=== PATIENT | male | born 1970 | race American Indian/Alaskan Native ===

== ENCOUNTER 2022-04-26 22:24 | Inpatient (IN) | payer SELFPAY ==
--- NOTE | 2022-04-26 23:08 | Emergency Department Report ---
ED General Adult HPI - General Chief complaint: Dyspnea/Respdistress Stated complaint: STV PUI?: No Time Seen by Provider: 04/26/22 22:56 Source: patient, EMS Mode of arrival: Stretcher Limitations: No Limitations - History of Present Illness Initial comments: 51-year-old male with medical history of hypertension also medically noncompliant said that he is not taking his blood pressure medication, denies smoking history or cocaine or illicit drug use. Patient came in today with concerns of heart racing and also short of breath that started while he was driving from work. Patient said that he has had this in the past but this the first night lasted this long. At the time of EMS arrival patient's heart was in the 220 was attempted vagal maneuver with no changes. The EMS gave patient 6 mg adenosine at 2201 and also adenosine 12 mg at 2203 and patient did convert with 12 mg of adenosine. At the time of evaluation. Patient endorsed feeling palpitation with short of breath. Patient denies any other symptoms such as fever chill night sweat dizziness blurred vision lightheadedness headache tinnitus ear pain runny nose sore throat loss of taste or smell chest pain cough abdominal pain nausea vomiting diarrhea constipation joint pain muscle pain new rash and heat or cold intolerance. - Related Data Allergies Allergy/AdvReac Type Severity Reaction Status Date / Time No Known Allergies Allergy Unverified 04/26/22 22:27 ED Review of Systems ROS: Stated complaint: STV Other details as noted in HPI Comment: All other systems reviewed and negative Constitutional: no symptoms reported Eyes: as per HPI ENT: as per HPI Respiratory: no symptoms reported Cardiovascular: palpitations Endocrine: no symptoms reported Gastrointestinal: as per HPI Genitourinary: as per HPI Musculoskeletal: as per HPI Skin: as per HPI Neurological: as per HPI Psychiatric: as per HPI Hematological/Lymphatic: as per HPI ED Past Medical Hx - Past Medical History Previous Medical History?: No Hx Hypertension: Yes (NON-COMPLIANT) - Surgical History Past Surgical History?: No - Social History Smoking Status: Unknown if ever smoked ED Physical Exam - General Limitations: No Limitations General appearance: alert, in no apparent distress - Head Head exam: Present: atraumatic, normocephalic - Eye Eye exam: Present: normal appearance, PERRL, EOMI Pupils: Present: normal accommodation - ENT ENT exam: Present: normal exam, mucous membranes moist - Neck Neck exam: Present: normal inspection, full ROM - Respiratory Respiratory exam: Present: normal lung sounds bilaterally - Cardiovascular Cardiovascular Exam: Present: normal rhythm, tachycardia, normal heart sounds - GI/Abdominal GI/Abdominal exam: Present: soft - Extremities Exam Extremities exam: Present: normal inspection, full ROM, normal capillary refill - Back Exam Back exam: Present: normal inspection, full ROM - Neurological Exam Neurological exam: Present: alert, oriented X3, CN II-XII intact - Psychiatric Psychiatric exam: Present: normal affect, normal mood - Skin Skin exam: Present: normal color ED Course Vital Signs 04/26/22 04/26/22 04/26/22 22:27 23:20 23:25 Temperature 98.6 F Pulse Rate 109 H 104 H Respiratory 18 21 23 Rate Blood Pressure 194/96 Blood Pressure [Right] O2 Sat by Pulse 100 100 100 Oximetry 04/26/22 04/26/22 04/26/22 23:27 23:31 23:46 Temperature Pulse Rate 101 H 103 H 102 H Respiratory 16 14 16 Rate Blood Pressure 194/96 Blood Pressure 194/96 [Right] O2 Sat by Pulse 100 100 100 Oximetry 04/27/22 04/27/22 04/27/22 00:00 00:16 00:30 Temperature Pulse Rate 95 H 91 H 95 H Respiratory 16 28 H 21 Rate Blood Pressure 194/96 172/94 165/102 Blood Pressure [Right] O2 Sat by Pulse 100 100 98 Oximetry 04/27/22 04/27/22 00:46 01:00 Temperature Pulse Rate 92 H 87 Respiratory 24 28 H Rate Blood Pressure 185/95 184/103 Blood Pressure [Right] O2 Sat by Pulse 100 97 Oximetry - Reevaluation(s) Reevaluation #1: 04/27/22 00:27 PATIENT'S LAB CAME BACK WITH ELEVATED TROP (NO CHEST PAIN) AND ELEVATED BNP (NO HX OF CHF OR IL). IN SETTING OF RECENT SVT AND ALL THESE ELEVATED, THERE IS CERTAINLY CONCERN FOR POSSIBLE SUBMASSIVE PE; THEREFORE, I WILL ORDER CTPA IMMEDIATELY AND WHILE WAITING FOR CTPA, I WILL GIVE PATIENT ASA, LOVENOX. I WILL KEEP AN EYE ON THE PATIENT CLOSELY. 04/27/22 02:[address] evidence for pulmonary embolism. Borderline cardiomegaly with mild interstitial pulm edema. Incidental pulmonary nodule in the right upper lobe measuring 15 mm with solid characteristic. Recommend further evaluation with PET CT scan. I will talk to hospitalist regarding this patient. 0 04/27/22 03:36 HOSPITALIST ACCEPTED THE PATIENT. ED Medical Decision Making - Lab Data Result diagrams: 04/26/22 23:06 04/26/22 23:06 Critical care attestation.: If time is entered above; I have spent that time in minutes in the direct care of this critically ill patient, excluding procedure time. ED Disposition Clinical Impression: SVT (supraventricular tachycardia), Tetrahydrocannabinol (THC) dependence, New onset of congestive heart failure, NSTEMI (non-ST elevated myocardial infarction), Pulmonary nodule Disposition: ADMITTED INPATIENT Is pt being admited?: Yes Does the pt Need Aspirin: No Condition: Stable Referrals: CHASTITY RAMOS MD [Primary Care Provider] - 3-5 Days Time of Disposition: 02:10
[2022-04-26 23:22] LABS: Basophils % (Auto) 0.4 % (0.0-1.8); Eosinophils # (Auto) 0.1 K/mm3 (0.0-0.4); Eosinophils % (Auto) 1.7 % (0.0-4.3); Hematocrit 48.9 % (35.5-45.6); Hemoglobin 16.1 gm/dl (11.8-15.2); Lymphocytes # (Auto) 1.7 K/mm3 (1.2-5.4); Lymphocytes % (Auto) 33.1 % (13.4-35.0); Mean Corpuscular HGB Conc 33 % (32-34); Mean Corpuscular Volume 92 fl (84-94); Monocytes # (Auto) 0.3 K/mm3 (0.0-0.8); Monocytes % (Auto) 5.8 % (0.0-7.3); Platelet Count 209 K/mm3 (140-440); Red Blood Count 5.33 M/mm3 (3.65-5.03); Red Cell Distribution Width 15.7 % (13.2-15.2)
--- NOTE | 2022-04-26 23:23 | XRay Report ---
CHEST 1 VIEW INDICATION / CLINICAL INFORMATION: SOB. COMPARISON: None available. FINDINGS: SUPPORT DEVICES: None. HEART / MEDIASTINUM: Cardiac silhouette is borderline to mildly enlarged. LUNGS / PLEURA: There is minimal interstitial pulmonary edema present. No pleural effusion or focal a reas consolidation. No pneumothorax. ADDITIONAL FINDINGS: No significant additional findings. IMPRESSION: 1. Borderline cardiomegaly with minimal interstitial pulmonary edema. Signer Name: Ana Nur MD Signed: 04/26/2022 11:19 PM Workstation Name: [id number]
[2022-04-27 00:05] LABS: Alanine Aminotransferase 41 units/L (7-56); Albumin 4.4 g/dL (3.9-5); BUN/Creatinine Ratio 11; Blood Urea Nitrogen 13 mg/dL (9-20); Calcium 8.7 mg/dL (8.4-10.2); Hemolysis Index 13
[2022-04-27 00:13] LABS: Creatine Kinase MB 11.4 ng/mL (0.0-4.0)
[2022-04-27] MEDS ORDERED: ASPIRIN 81 MG TAB CHEW PO ONE (00:26)
[2022-04-27] MEDS ORDERED: ENOXAPARIN 100 MG/1 ML INJ SUB-Q ONE (00:26)
[2022-04-27 00:44] LABS: Chol/HDL Ratio 2.31 %
[2022-04-27 01:21] LABS: Color,Urine Colorless (Yellow)
[2022-04-27 01:23] LABS: Bacteria,Urine 1+ /HPF (Negative); Granular Casts,Urine 6 /LPF; Mucus,Urine FEW /HPF
[2022-04-27 01:24] LABS: Amphetamine Screen,Urine Negative; Benzodiazepines Screen,Urine Negative; Cocaine Screen,Urine Negative; Methadone Screen,Urine Negative; Opiate Screen,Urine Negative
[2022-04-27 01:41] LABS: Cannabinoid Screen,Urine Positive
--- NOTE | 2022-04-27 01:48 | Cat Scan Report ---
CTA CHEST WITH IV CONTRAST INDICATION / CLINICAL INFORMATION: SVT + TROP + BNP; R/O PE. TECHNIQUE: Axial CT images were obtained through the chest after injection of 100 cc Omni 350 IV contrast. 3 luis armando ne MIP and/or 3D reconstructions were produced. All CT scans at this location are performed using CT dose reduction for ALARA by means of automated exposure control. COMPARISON: Chest radiograph from earlier today FINDINGS: PULMONARY ARTERIES: No pulmonary emboli. THORACIC AORTA: No significant abnormality. HEART: Borderline cardiomegaly. CORONARY ARTERIES: No significant calcification. PLEURA: No pleural effusion. No pneumothorax. LYMPH NODES: No significant adenopathy. LUNGS: Mild interstitial pulmonary edema is noted bilaterally. No focal consolidation or pleural effu britni noted. Also noted incidentally is a noncalcified mass in the right upper lobe laterally. Pulmona ry mass measures 1.5 cm and has irregular margins. ADDITIONAL FINDINGS: None. UPPER ABDOMEN: No acute findings. SKELETAL STRUCTURES: No significant osseous abnormality. IMPRESSION: 1. No CT evidence for pulmonary embolism. 2. Borderline cardiomegaly with mild interstitial pulmonary edema. 3.. Incidental pulmonary nodule(s) in the right upper lobe measuring 15 mm with solid characteristics . Recommend further evaluation with PET/CT. Finding is concerning for lung malignancy. Signer Name: Ana Nur MD Signed: 04/27/2022 1:44 AM Workstation Name: [id number]
[2022-04-27] MEDS ORDERED: ONDANSETRON 4 MG/2 ML INJ IV PRN (03:35)
[2022-04-27] MEDS ORDERED: MAGNESIUM HYDROXIDE (MOM) ORAL LIQD UDC PO PRN (03:35)
[2022-04-27] MEDS ORDERED: ACETAMINOPHEN 325 MG TAB PO PRN ×2 (03:35)
[2022-04-27] MEDS ORDERED: traMADol 50 MG TAB PO PRN (03:35)
[2022-04-27] MEDS ORDERED: MORPHINE 4 MG/1 ML INJ IV PRN (03:35)
[2022-04-27] MEDS ORDERED: MORPHINE 2 MG/1 ML INJ IV PRN ×2 (03:35)
[2022-04-27] MEDS ORDERED: DEXTROSE 50% IN WATER (25GM) 50 ML SYRINGE IV PRN (03:35)
--- NOTE | 2022-04-27 03:57 | History and Physical Report ---
History of Present Illness Date of examination: 04/27/22 Date of admission: 04/27/2022 Chief complaint: Palpitation History of present illness: 51-year-old -[place] male with known history of hypertension who was not been quite compliant with his medications for several years presenting the emergency room today complaining of palpitations and shortness of breath while driving to work today. He has had similar episodes before but this has Lasted longer than in the past. He denies any chest pain. Upon arrival of EMS patient's heart rate was in the 200s and Valsalva maneuver was tried without any significant improvement. Patient was subsequently given adenosine 6 mg and subsequently 12 mg and patient converted to sinus rhythm. Patient admits that he has not been compliant with his blood pressure medication secondary to lack of insurance. He denies any headache or dizziness, denies any diaphoresis, no nausea vomiting and no abdominal pain. Upon arrival in the emergency room today blood pressure was quite elevated with systolic in the 190s and diastolic in the 90s. Work-up in the emergency room today, chest x-ray reveals borderline cardiomegaly with minimal interstitial pulmonary edema. CT angiogram reveals incidental pulmonary nodule in the right upper lobe measuring 15 mm with solid characteristics. PET/CT scan is recommended for furt her evaluation. Lab reveals a BNP of 1094, troponin 0.051, D-dimer 299, UDS significant for marijuana. EKG shows no ischemic changes. Patient is being admitted with pulmonary edema NSTEMI and history of SVT. Past History Past Medical History: hypertension Past Surgical History: No surgical history Social history: no significant social history Family history: no significant family history Medications and Allergies Allergies Allergy/AdvReac Type Severity Reaction Status Date / Time No Known Allergies Allergy Unverified 04/26/22 22:27 Review of Systems Constitutional: no fever, no chills Ears, nose, mouth and throat: no nasal congestion, no sore throat Cardiovascular: palpitations, no chest pain Respiratory: no cough, no shortness of breath Gastrointestinal: no abdominal pain, no nausea, no vomiting, no diarrhea Genitourinary Male: no dysuria, no hematuria, no flank pain Musculoskeletal: no neck pain, no low back pain Integumentary: no rash, no pruritis Neurological: no headaches, no confusion Psychiatric: no anxiety, no depression Endocrine: no polyphagia, no polydipsia, no polyuria, no nocturia Exam - Constitutional Vitals: Temp Pulse Resp BP Pulse Ox 98.6 F 87 28 H 184/103 97 04/26/22 22:27 04/27/22 01:00 04/27/22 01:00 04/27/22 01:00 04/27/22 01:00 General appearance: Present: no acute distress, well-nourished - EENT Eyes: Present: PERRL, EOM intact. Absent: scleral icterus ENT: hearing intact, clear oral mucosa, dentition normal - Neck Neck: Present: supple, normal ROM - Respiratory Respiratory effort: normal Respiratory: bilateral: CTA - Cardiovascular Rhythm: regular Heart Sounds: Present: S1 & S2. Absent: gallop, systolic murmur, diastolic murmur, rub, click - Extremities Extremities: no ischemia, pulses intact, pulses symmetrical, No edema, normal temperature, normal color, Full ROM Peripheral Pulses: within normal limits - Abdominal General gastrointestinal: Present: soft, non-tender, non-distended, normal bowel sounds. Absent: mass - Integumentary Integumentary: Present: clear, warm, dry, normal turgor. Absent: rash - Musculoskeletal Musculoskeletal: strength equal bilaterally - Psychiatric Psychiatric: appropriate mood/affect, intact judgment & insight, memory intact, cooperative - Neurologic Neurologic: CNII-XII intact, no focal deficits, moves all extremities HEART Score - HEART Score Troponin: Troponin T 0.051 ng/mL (0.00-0.029) H 04/26/22 23:06 Results - Labs CBC & Chem 7: 04/26/22 23:06 04/26/22 23:06 Labs: Abnormal lab results 04/26/22 04/26/22 04/26/22 Range/Units 23:06 23:06 23:06 RBC 5.33 H (3.65-5.03) M/mm3 Hgb 16.1 H (11.8-15.2) gm/dl Hct 48.9 H (35.5-45.6) % RDW 15.7 H (13.2-15.2) % D-Dimer 299.97 H (0-234) ng/mlDDU Glucose 154 H (75-100) mg/dL Total Creatine Kinase (55-170) units/L CK-MB (CK-2) (0.0-4.0) ng/mL Troponin T (0.00-0.029) ng/mL NT-Pro-B Natriuret Pep (0-900) pg/mL Triglycerides (2-149) mg/dL HDL Cholesterol (40-59) mg/dL 04/26/22 Range/Units 23:06 RBC (3.65-5.03) M/mm3 Hgb (11.8-15.2) gm/dl Hct (35.5-45.6) % RDW (13.2-15.2) % D-Dimer (0-234) ng/mlDDU Glucose (75-100) mg/dL Total Creatine Kinase 636 H (55-170) units/L CK-MB (CK-2) 11.4 H (0.0-4.0) ng/mL Troponin T 0.051 H (0.00-0.029) ng/mL NT-Pro-B Natriuret Pep 1094 H (0-900) pg/mL Triglycerides 176 H (2-149) mg/dL HDL Cholesterol 76 H (40-59) mg/dL Assessment and Plan Assessment: 1. CHFnew onset 2. Hypertensive urgency 3. NSTEMI 4. Pulmonary nodule 5. Medication noncompliance Plan: 1. Patient admitted and placed on telemetry. 2. Patient started on diuretics. We will monitor input and output and also monitor daily weight. 3. Patient scheduled for echocardiogram. 4. We will cardiology evaluation and recommendations 5. Patient will be placed on prn antihypertensive medication. We will monitor vital signs closely. DVT prophylaxis:SQ heparin Code Status: Full Code
[2022-04-27] MEDS ORDERED: FUROSEMIDE 40 MG/4 ML INJ IV SCH (06:00)
[2022-04-27] MEDS: HEPARIN 5,000 UNIT/1 ML VIAL SUB-Q SCH ×3 (06:59→22:04)
[2022-04-27] MEDS ORDERED: hydrALAZINE 20 MG/1 ML INJ IV PRN (07:00)
--- NOTE | 2022-04-27 09:10 | Event Note ---
Date: 04/27/22 Patient seen in the echocardiogram lab. This is a follow-up from an admission earlier this morning. We will continue to plan as outlined in H&P. With regards to the pulmonary nodule, patient states that he would like to have a second opinion at [place]. Pulmonary consultation pending. Await cardiology consultation. Total visit time equals 32 minutes with greater than 50% spent on coordination of care and counseling
[2022-04-27] MEDS: dilTIAZem CD 180 MG CAP PO SCH (11:45)
[2022-04-27] MEDS ORDERED: LOSARTAN 50 MG TAB PO SCH (12:00)
--- NOTE | 2022-04-27 12:19 | Consultation ---
History of Present Illness Consult date: 04/27/22 Requesting physician: ROOPA BARRETT Consult reason: congestive heart failure History of present illness: Patient 51-year-old male with a past medical history of hypertension came to the ED for complaint of palpitations and shortness of breath that occurred while driving yesterday. Per documentation on arrival to the ED patient was in SVT with heart rate 200s and converted following administration of adenosine. Patient was also found to have elevated BNP and elevated blood pressure. Patient admits to being noncompliant with blood pressure medication. Of note CT concerning for pulmonary nodule. At time of interview patient denies any complaints of chest pain, current palpitations, shortness of breath, or lightheadedness. Cardiology was consulted for CHF. Past History Past Medical History: hypertension Past Surgical History: No surgical history Social history: no significant social history Family history: no significant family history Medications and Allergies Allergies Allergy/AdvReac Type Severity Reaction Status Date / Time No Known Allergies Allergy Verified 04/27/22 12:18 Active Meds: Active Medications Acetaminophen (Acetaminophen 325 Mg Tab) 650 mg PO Q4H PRN PRN Reason: Pain MILD(1-3)/Fever >100.5/BOWSER Aspirin (Aspirin Ec 325 Mg Tab) 325 mg PO QDAY [facility] Dextrose (Dextrose 50% In Water (25gm) 50 Ml Syringe) 0 ml IV Q30MIN PRN; Protocol PRN Reason: Hypoglycemia Diltiazem HCl (Diltiazem Cd 180 Mg Cap) 180 mg PO QDAY [facility] Last Admin: 04/27/22 11:45 Dose: 180 mg Heparin Sodium (Porcine) (Heparin 5,000 Unit/1 Ml Vial) 5,000 unit SUB-Q Q8HR [facility] Last Admin: 04/27/22 06:59 Dose: 5,000 unit Hydralazine HCl (Hydralazine 20 Mg/1 Ml Inj) 10 mg IV Q4HR PRN PRN Reason: Blood Pressure Losartan Potassium (Losartan 50 Mg Tab) 50 mg PO QDAY [facility] Last Admin: 04/27/22 11:44 Dose: 50 mg Magnesium Hydroxide (Magnesium Hydroxide (Mom) Oral Liqd Udc) 30 ml PO Q4H PRN PRN Reason: Constipation Morphine Sulfate (Morphine 2 Mg/1 Ml Inj) 2 mg IV Q4H PRN PRN Reason: Pain, Moderate (4-6) Morphine Sulfate (Morphine 4 Mg/1 Ml Inj) 4 mg IV Q4H PRN PRN Reason: Pain , Severe (7-10) Morphine Sulfate (Morphine 2 Mg/1 Ml Inj) 2 mg IV Q5MIN PRN PRN Reason: Chest Pain unrelieved by NTG Ondansetron HCl (Ondansetron 4 Mg/2 Ml Inj) 4 mg IV Q8H PRN PRN Reason: Nausea And Vomiting Sodium Chloride (Sodium Chloride 0.9% 10 Ml Flush Syringe) 10 ml IV BID NICHOL Last Admin: 04/27/22 11:44 Dose: 10 ml Sodium Chloride (Sodium Chloride 0.9% 10 Ml Flush Syringe) 10 ml IV PRN PRN PRN Reason: LINE FLUSH Tramadol HCl (Tramadol 50 Mg Tab) 50 mg PO Q6H PRN PRN Reason: Pain, Moderate (4-6) Review of Systems Constitutional: no weight loss, no weight gain, no fever Ears, nose, mouth and throat: no sinus pressure, no sinus pain Cardiovascular: palpitations, no chest pain, no shortness of breath, no dyspnea on exertion Respiratory: no shortness of breath, no dyspnea on exertion Gastrointestinal: no abdominal pain, no nausea, no vomiting Musculoskeletal: no neck stiffness, no neck pain Integumentary: no rash, no pruritis Neurological: no head injury, no transient paralysis Psychiatric: no anxiety, no memory loss Endocrine: no cold intolerance, no heat intolerance Hematologic/Lymphatic: no easy bruising, no easy bleeding Physical Examination Vital Signs Temp Pulse Resp Pulse Ox 98.6 F 109 H 18 100 04/26/22 22:27 04/26/22 22:27 04/26/22 22:27 04/26/22 22:27 General appearance: no acute distress HEENT: Positive: PERRL Neck: Positive: trachea midline Cardiac: Positive: Reg Rate and Rhythm Lungs: Positive: Normal Breath Sounds Neuro: Positive: Grossly Intact Abdomen: Positive: Soft Skin: Negative: Rash, Suspicious Lesions, Ulceration Extremities: Present: upper extr. pulses. Absent: edema Results 04/26/22 23:06 04/26/22 23:06 Cardiac Enzymes 04/26/22 04/26/22 Range/Units 23:06 23:06 AST 35 (5-40) units/L CK-MB (CK-2) 11.4 H (0.0-4.0) ng/mL Lipids 04/26/22 Range/Units 23:06 Triglycerides 176 H (2-149) mg/dL Cholesterol 176 (50-199) mg/dL HDL Cholesterol 76 H (40-59) mg/dL Cholesterol/HDL Ratio 2.31 % CBC 04/26/22 Range/Units 23:06 WBC 5.2 (4.5-11.0) K/mm3 RBC 5.33 H (3.65-5.03) M/mm3 Hgb 16.1 H (11.8-15.2) gm/dl Hct 48.9 H (35.5-45.6) % Plt Count 209 (140-440) K/mm3 Lymph # (Auto) 1.7 (1.2-5.4) K/mm3 [place] # (Auto) 0.3 (0.0-0.8) K/mm3 Eos # (Auto) 0.1 (0.0-0.4) K/mm3 Baso # (Auto) 0.0 (0.0-0.1) K/mm3 Comprehensive Metabolic Panel 04/26/22 Range/Units 23:06 Sodium 139 (137-145) mmol/L Potassium 4.4 (3.6-5.0) mmol/L Chloride 100.7 (98-107) mmol/L Carbon Dioxide 30 (22-30) mmol/L BUN 13 (9-20) mg/dL Creatinine 1.2 (0.8-1.3) mg/dL Glucose 154 H (75-100) mg/dL Calcium 8.7 (8.4-10.2) mg/dL AST 35 (5-40) units/L ALT 41 (7-56) units/L Alkaline Phosphatase 104 (35-129) units/L Total Protein 7.9 (6.3-8.2) g/dL Albumin 4.4 (3.9-5) g/dL - Imaging and Cardiology Echo: pending EKG interpretations - Telemetry EKG Rhythm: Sinus Rhythm - EKG Sinus rhythms and dysrhythmias: sinus rhythm Chamber hypertrophy or enlargement: left ventricular hypertro Assessment and Plan Patient 51-year-old male with a past medical history of hypertension came to the ED for complaint of palpitations and shortness of breath that occurred while driving yesterday Hypertensive urgency Suspected SVT? Pulmonary nodule Plan: EKG shows sinus rhythm with no acute ischemic changes Telemetry reviewed patient sinus 80s with no episodes of SVT Currently no rhythm strips or EKGs to show if patient was in SVT Preliminary echo shows normal EF with concentric LVH and no regional wall motion abnormalities. See report for full details Patient appears euvolemic on exam we will stop Lasix Patient is hypertensive will initiate Cardizem CD 180 mg p.o. daily and losartan 50 mg p.o. daily Cardiac status otherwise stable Patient's follow-up appointment with Dr. Toscano, [facility] biology specialist, on 06/04/2022 in our [place] location. Phone #[phone] Patient seen in conjunction with Dr. Toscano who agrees to the plan of care - Patient Problems (1) Hypertensive urgency Current Visit: Yes Status: Acute (2) SVT (supraventricular tachycardia) Current Visit: Yes Status: Acute (3) Tetrahydrocannabinol (THC) dependence Current Visit: Yes Status: Acute (4) Pulmonary nodule Current Visit: Yes Status: Acute
--- NOTE | 2022-04-27 12:43 | Event Note ---
Date: 04/27/22 Consulted for Pulmonary nodule. Before I could explain my plan and thoughts to patient, he states that he wants to follow up at [place] with his Girlfriends Cousin who is a cancer surgeon. Was not interested in following up with me or my practice and states that he will take care of it. High risk for malignancy given his years of smoking (>20) and upper lobe location but not able to express this to patient.
[2022-04-27] MEDS ORDERED: hydrALAZINE 20 MG/1 ML INJ IV ONE ×2 (18:02→18:04)
[2022-04-28 05:01] VITALS: BP 151/86
[2022-04-28 06:15] LABS: Basophils % (Auto) 0.6 % (0.0-1.8); Eosinophils # (Auto) 0.1 K/mm3 (0.0-0.4); Hematocrit 50.3 % (35.5-45.6); Hemoglobin 16.3 gm/dl (11.8-15.2); Lymphocytes # (Auto) 1.2 K/mm3 (1.2-5.4); Lymphocytes % (Auto) 23.7 % (13.4-35.0); Mean Corpuscular HGB Conc 32 % (32-34); Mean Corpuscular Volume 90 fl (84-94); Monocytes # (Auto) 0.5 K/mm3 (0.0-0.8); Monocytes % (Auto) 9.5 % (0.0-7.3); Platelet Count 202 K/mm3 (140-440); Red Blood Count 5.56 M/mm3 (3.65-5.03); Red Cell Distribution Width 15.6 % (13.2-15.2)
[2022-04-28] MEDS: HEPARIN 5,000 UNIT/1 ML VIAL SUB-Q SCH (06:29)
[2022-04-28 06:39] LABS: BUN/Creatinine Ratio 14; Blood Urea Nitrogen 15 mg/dL (9-20); Hemolysis Index 2
--- NOTE | 2022-04-28 08:26 | Progress Note ---
Assessment and Plan Assessment and plan: 1. CHFnew onset Echocardiogram normal ejection fraction, IV diuretics for pulmonary edema Closely monitor, follow cardiology and pulmonary recommendations 2. Hypertensive urgency; Blood pressures moderate control, continue current antihypertensives As needed medications 3. NSTEMI; very minimal elevation of troponin, nonspecific Cardiology following 4. Pulmonary nodule; Pulmonary evaluation recommendations noted and appreciated Patient will follow with his private barrel filler at [place] upon discharge 5. Medication noncompliance; Strongly advised to comply with medications, diet and follow-up visits 6. Substance abuse; History of tobacco use, ongoing marijuana use Counseling done patient strongly advised to quit recreational drug use Smoking cessation counseling done DVT prophylaxis; Subcu heparin Closely monitor the patient and adjust the management as needed Possible discharge when patient is stable and cleared by cardiology Hospitalist Physical - Constitutional Vitals: Temp Pulse Resp BP Pulse Ox 97.7 F 82 18 151/86 98 04/28/22 04:58 04/28/22 04:58 04/28/22 04:58 04/28/22 04:58 04/28/22 04:58 General appearance: Present: no acute distress HEART Score - HEART Score Troponin: Troponin T 0.051 ng/mL (0.00-0.029) H 04/27/22 11:12 Results - Labs CBC & Chem 7: 04/28/22 05:24 04/28/22 05:24 Labs: Laboratory Last Values WBC 5.1 K/mm3 (4.5-11.0) 04/28/22 05:24 RBC 5.56 M/mm3 (3.65-5.03) H 04/28/22 05:24 Hgb 16.3 gm/dl (11.8-15.2) H 04/28/22 05:24 Hct 50.3 % (35.5-45.6) H 04/28/22 05:24 MCV 90 fl (84-94) 04/28/22 05:24 MCH 29 pg (28-32) 04/28/22 05:24 MCHC 32 % (32-34) 04/28/22 05:24 RDW 15.6 % (13.2-15.2) H 04/28/22 05:24 Plt Count 202 K/mm3 (140-440) 04/28/22 05:24 Lymph % (Auto) 23.7 % (13.4-35.0) 04/28/22 05:24 [place] % (Auto) 9.5 % (0.0-7.3) H 04/28/22 05:24 Eos % (Auto) 1.0 % (0.0-4.3) 04/28/22 05:24 Baso % (Auto) 0.6 % (0.0-1.8) 04/28/22 05:24 Lymph # (Auto) 1.2 K/mm3 (1.2-5.4) 04/28/22 05:24 [place] # (Auto) 0.5 K/mm3 (0.0-0.8) 04/28/22 05:24 Eos # (Auto) 0.1 K/mm3 (0.0-0.4) 04/28/22 05:24 Baso # (Auto) 0.0 K/mm3 (0.0-0.1) 04/28/22 05:24 Seg Neutrophils % 65.2 % (40.0-70.0) 04/28/22 05:24 Seg Neutrophils # 3.3 K/mm3 (1.8-7.7) 04/28/22 05:24 D-Dimer 299.97 ng/mlDDU (0-234) H 04/26/22 23:06 Sodium 138 mmol/L (137-145) 04/28/22 05:24 Potassium 4.3 mmol/L (3.6-5.0) 04/28/22 05:24 Chloride 101.0 mmol/L (98-107) 04/28/22 05:24 Carbon Dioxide 26 mmol/L (22-30) 04/28/22 05:24 Anion Gap 15 mmol/L 04/28/22 05:24 BUN 15 mg/dL (9-20) 04/28/22 05:24 Creatinine 1.1 mg/dL (0.8-1.3) 04/28/22 05:24 Estimated GFR > 60 ml/min 04/28/22 05:24 BUN/Creatinine Ratio 14 % 04/28/22 05:24 Glucose 130 mg/dL (75-100) H 04/28/22 05:24 POC Glucose 145 mg/dL (70-105) H 04/27/22 21:43 Calcium 9.0 mg/dL (8.4-10.2) 04/28/22 05:24 Magnesium 2.00 mg/dL (1.7-2.3) 04/26/22 23:06 Total Bilirubin 0.60 mg/dL (0.1-1.2) 04/26/22 23:06 AST 35 units/L (5-40) 04/26/22 23:06 ALT 41 units/L (7-56) 04/26/22 23:06 Alkaline Phosphatase 104 units/L (35-129) 04/26/22 23:06 Total Creatine Kinase 636 units/L (55-170) H 04/26/22 23:06 CK-MB (CK-2) 11.4 ng/mL (0.0-4.0) H 04/26/22 23:06 CK-MB (CK-2) Rel Index 1.7 (0-4) 04/26/22 23:06 Troponin T 0.051 ng/mL (0.00-0.029) H 04/27/22 11:12 NT-Pro-B Natriuret Pep 1094 pg/mL (0-900) H 04/26/22 23:06 Total Protein 7.9 g/dL (6.3-8.2) 04/26/22 23:06 Albumin 4.4 g/dL (3.9-5) 04/26/22 23:06 Albumin/Globulin Ratio 1.3 % 04/26/22 23:06 Triglycerides 176 mg/dL (2-149) H 04/26/22 23:06 Cholesterol 176 mg/dL (50-199) 04/26/22 23:06 LDL Cholesterol Direct 82 mg/dL (50-130) 04/26/22 23:06 HDL Cholesterol 76 mg/dL (40-59) H 04/26/22 23:06 Cholesterol/HDL Ratio 2.31 % 04/26/22 23:06 TSH 1.740 mlU/mL (0.270-4.200) 04/26/22 23:06 Urine Color Colorless (Yellow) 04/27/22 01:05 Urine Turbidity Clear (Clear) 04/27/22 01:05 Specific [place] (Man) 1.010 (1.003-1.030) 04/27/22 01:05 Ur Protein (Man) 3+ mg/dL (Negative) 04/27/22 01:05 Ur Ketones (Man) Negative (Negative) 04/27/22 01:05 Ur Nitrite (Man) Negative (Negative) 04/27/22 01:05 Urine Bilirubin (Man) Negative (Negative) 04/27/22 01:05 Leukocyte Esterase (Man) Negative (Negative) 04/27/22 01:05 Urine WBC (Auto) 2.0 /HPF (0.0-6.0) 04/27/22 01:05 Urine RBC (Auto) 2.0 /HPF (0.0-6.0) 04/27/22 01:05 Urine Bacteria (Auto) 1+ /HPF (Negative) 04/27/22 01:05 Urine RBC (Manual) 2+ (Negative) 04/27/22 01:05 Granular Casts 6 /LPF 04/27/22 01:05 Urine Mucus Few /HPF 04/27/22 01:05 Urine Opiates Screen Negative 04/27/22 01:05 Urine Methadone Screen Negative 04/27/22 01:05 Ur Barbiturates Screen Negative 04/27/22 01:05 Ur Phencyclidine Scrn Negative 04/27/22 01:05 Ur Amphetamines Screen Negative 04/27/22 01:05 U Benzodiazepines Scrn Negative 04/27/22 01:05 Urine Cocaine Screen Negative 04/27/22 01:05 U Marijuana (THC) Screen Positive 04/27/22 01:05 Drugs of Abuse Note Disclamer 04/27/22 01:05 Berg/IV: Voiding Method Toilet Active Medications - Current Medications Current Medications: Generic Name Dose Route Start Last Admin Trade Name Freq PRN Reason Stop Dose Admin Acetaminophen 650 mg 04/27/22 03:35 Acetaminophen 325 Mg Tab PO Q4H PRN Pain MILD(1-3)/Fever >100.5/BOWSER Aspirin 325 mg 04/28/22 10:00 Aspirin Ec 325 Mg Tab PO QDAY NICHOL Dextrose 0 ml 04/27/22 03:35 Dextrose 50% In Water (25gm) 50 Ml Syringe IV Q30MIN PRN Hypoglycemia Protocol Diltiazem HCl 180 mg 04/27/22 12:00 04/27/22 11:45 Diltiazem Cd 180 Mg Cap PO 180 mg QDAY NICHOL Administration Heparin Sodium (Porcine) 5,000 unit 04/27/22 06:00 04/28/22 06:29 Heparin 5,000 Unit/1 Ml Vial SUB-Q 5,000 unit Q8HR NICHOL Administration Hydralazine HCl 10 mg 04/27/22 07:00 04/27/22 17:33 Hydralazine 20 Mg/1 Ml Inj IV 10 mg Q4HR PRN Administration Blood Pressure Losartan Potassium 50 mg 04/27/22 12:00 04/27/22 11:44 Losartan 50 Mg Tab PO 50 mg QDAY NICHOL Administration Magnesium Hydroxide 30 ml 04/27/22 03:35 Magnesium Hydroxide (Mom) Oral Liqd Udc PO Q4H PRN Constipation Morphine Sulfate 2 mg 04/27/22 03:35 Morphine 2 Mg/1 Ml Inj IV Q4H PRN Pain, Moderate (4-6) Morphine Sulfate 4 mg 04/27/22 03:35 Morphine 4 Mg/1 Ml Inj IV Q4H PRN Pain , Severe (7-10) Morphine Sulfate 2 mg 04/27/22 03:35 Morphine 2 Mg/1 Ml Inj IV Q5MIN PRN Chest Pain unrelieved by NTG Ondansetron HCl 4 mg 04/27/22 03:35 Ondansetron 4 Mg/2 Ml Inj IV Q8H PRN Nausea And Vomiting Sodium Chloride 10 ml 04/27/22 10:00 04/27/22 22:07 Sodium Chloride 0.9% 10 Ml Flush Syringe IV 10 ml BID NICHOL Administration Sodium Chloride 10 ml 04/27/22 03:35 Sodium Chloride 0.9% 10 Ml Flush Syringe IV PRN PRN LINE FLUSH Tramadol HCl 50 mg 04/27/22 03:35 Tramadol 50 Mg Tab PO Q6H PRN Pain, Moderate (4-6)
--- NOTE | 2022-04-28 09:40 | Electrocardiograph Report ---
[facility] Test Date: 2022-04-28 Test Time: 06:07:48 Pat Name: JANEY MISHRA Department: Room: A458 1 Gender: M Engineering Recruiter: VALERY : 1970 Requested By: ROOPA BARRETT Order Number: [id number] Reading MD: Dion Toscano Measurements Intervals [place] Rate: 78 P: 61 PA: 146 QRS: -44 QRSD: 125 T: 151 QT: 430 QTc: 491 Interpretive Statements Sinus rhythm Biatrial enlargement non specific st-t Compared to ECG 04/27/2022 07:53:11 No significant changes Electronically Signed On 04-28-2022 9:39:54 EDT by Dion Toscano
[2022-04-28] MEDS ORDERED: ASPIRIN EC 325 MG TAB PO SCH (10:00)
[2022-04-28] MEDS ORDERED: LOSARTAN 50 MG TAB PO SCH (10:00)
[2022-04-28] MEDS: dilTIAZem CD 180 MG CAP PO SCH (11:22)
--- NOTE | 2022-04-28 11:52 | Discharge Summary ---
Providers - Providers Date of Admission: 04/27/22 03:37 Date of discharge: 04/28/22 Attending physician: UZAIR CAMPOS 04/27/22 Consult to Cardiac Rehabilitation [CONS] Routine Reason For Exam: Phase I 04/27/22 03:35 Consult to Physician [CONS] Routine Comment: Consulting Provider: JAIME NEWMAN Physician Instructions: Reason For Exam: CHF- New onset Primary care physician: CHASTITY RAMOS Hospitalization Condition: Stable Hospital course: Patient 51-year-old male with a past medical history of hypertension came to the ED for complaint of palpitations and shortness of breath that occurred while driving yesterday Hypertensive urgency Suspected SVT? Pulmonary nodule 1. CHFnew onset Echocardiogram normal ejection fraction, CHF ruled out 2. Hypertensive urgency; Blood pressures moderate control, continue current antihypertensives As needed medications 3. NSTEMI; very minimal elevation of troponin, Insignificant Cardiology did not recommend any work-up 4. Pulmonary nodule; Pulmonary evaluation recommendations noted and appreciated Patient will follow with his private applications development consultant at [place] upon discharge 5. Medication noncompliance; Strongly advised to comply with medications, diet and follow-up visits 6. Substance abuse; History of tobacco use, ongoing marijuana use Counseling done patient strongly advised to quit recreational drug use Smoking cessation counseling done --Morbidly obese; BMI 41.1 Disposition: 30 STILL A PATIENT Final Discharge Diagnosis (Prints w/discharge instructions): Possible congestive heart failure. CHF ruled out. Hypertensive urgency/resolved. Non-ST elevation FL[elevated troponins] no significance. Pulmonary nodule. Medical noncompliance history of. History of tobacco use[patient quit a couple of years ago]. Recreational drug use/marijuana. Morbid obesity Time spent for discharge: 40 minutes Core Measure Documentation - Palliative Care Palliative Care/ Comfort Measures: Not Applicable - Core Measures Any of the following diagnoses?: none Exam - Constitutional Vitals: Temp Pulse Resp BP Pulse Ox 97.7 F 82 18 151/86 98 04/28/22 04:58 04/28/22 04:58 04/28/22 04:58 04/28/22 04:58 04/28/22 04:58 Plan Activity: no restrictions Diet: other (cardiac diet) Special Instructions: smoking cessation Additional Instructions: Follow-up appointment with Dr. Toscano, [facility] front end alignment specialist, on 06/04/2022 in our [place] location. Phone #[phone]. If you have worsening symptoms contact MD or go to the nearest emergency room as needed. Advised smoking cessation. Advised to quit recreational drug use marijuana. Advised diet modification, exercise as tolerated and weight reduction when you are medically stable. Advised to see your private applications development consultant in [place] for further evaluation management of your lung nodule. Advised to see primary care physician in 5 to 7 days Follow up with: CHASTITY RAMOS MD [Primary Care Provider] - 3-5 Days LUZ MARIA TOSCANO MD [Staff Physician] - 06/04/22 Prescriptions: dilTIAZem CD [Cardizem CD] 180 mg PO QDAY #30 capsule Losartan [Cozaar] 100 mg PO QDAY #30
--- NOTE | 2022-04-28 11:54 | Progress Note ---
Assessment and Plan Patient 51-year-old male with a past medical history of hypertension came to the ED for complaint of palpitations and shortness of breath that occurred while driving yesterday Hypertensive urgency Suspected SVT? Pulmonary nodule Echo 04/27/2022-EF 50 to 55%. Right ventricle systolic function is normal. No aortic regurgitation is present. No mitral valve regurgitation. No tricuspid valve regurgitation. Plan: Telemetry reviewed patient sinus 80s with no episodes of SVT Currently no rhythm strips or EKGs to show if patient was in SVT Preliminary echo shows normal EF with concentric LVH and no regional wall motion abnormalities. See report for full details Continue Cardizem CD 180 mg p.o. daily Patient remains hypertensive and will increase to losartan 100 mg p.o. daily Cardiac status otherwise stable Patient's follow-up appointment with Dr. Toscano, [facility], on 06/04/2022 in our [place] location. Phone #[phone] Patient seen in conjunction with Dr. Toscano who agrees to the plan of care - Patient Problems (1) Hypertensive urgency Current Visit: Yes Status: Acute (2) SVT (supraventricular tachycardia) Current Visit: Yes Status: Acute (3) Tetrahydrocannabinol (THC) dependence Current Visit: Yes Status: Acute (4) Pulmonary nodule Current Visit: Yes Status: Acute Subjective Date of service: 04/28/22 Principal diagnosis: SVT, HTN urgerncy Interval history: Patient resting in bed in no acute distress Patient sinus 90s on monitor with no event Objective Vital Signs Temp Pulse Pulse Resp BP BP Pulse Ox 04/28/22 04:58 97.7 F 82 18 151/86 98 04/28/22 04:00 99 04/28/22 00:16 98.3 F 86 18 144/82 99 04/27/22 20:25 98.9 F 90 19 167/81 97 04/27/22 18:14 82 170/84 04/27/22 18:00 176/84 04/27/22 17:33 85 170/100 04/27/22 16:47 80 100 04/27/22 16:25 97.9 F 81 170/103 96 04/27/22 15:00 86 04/27/22 12:20 98.6 F 87 186/119 97 - Physical Examination General: No Apparent Distress HEENT: Positive: PERRL Neck: Positive: trachea midline Cardiac: Positive: Reg Rate and Rhythm Lungs: Positive: Normal Breath Sounds Neuro: Positive: Grossly Intact Abdomen: Positive: Soft Skin: Negative: Rash, Suspicious Lesions, Ulceration Extremities: Present: upper extr. pulses. Absent: edema - Labs and Meds CBC 04/28/22 Range/Units 05:24 WBC 5.1 (4.5-11.0) K/mm3 RBC 5.56 H (3.65-5.03) M/mm3 Hgb 16.3 H (11.8-15.2) gm/dl Hct 50.3 H (35.5-45.6) % Plt Count 202 (140-440) K/mm3 Lymph # (Auto) 1.2 (1.2-5.4) K/mm3 [place] # (Auto) 0.5 (0.0-0.8) K/mm3 Eos # (Auto) 0.1 (0.0-0.4) K/mm3 Baso # (Auto) 0.0 (0.0-0.1) K/mm3 Comprehensive Metabolic Panel 04/28/22 Range/Units 05:24 Sodium 138 (137-145) mmol/L Potassium 4.3 (3.6-5.0) mmol/L Chloride 101.0 (98-107) mmol/L Carbon Dioxide 26 (22-30) mmol/L BUN 15 (9-20) mg/dL Creatinine 1.1 (0.8-1.3) mg/dL Glucose 130 H (75-100) mg/dL Calcium 9.0 (8.4-10.2) mg/dL - Imaging and Cardiology Echo: report reviewed - EKG Sinus rhythms and dysrhythmias: sinus rhythm Chamber hypertrophy or enlargement: left ventricular hypertro
--- NOTE | 2022-04-29 14:17 | Electrocardiograph Report ---
[facility] Test Date: 2022-04-27 Test Time: 07:53:11 Pat Name: JANEY MISHRA Department: Room: A458 1 Gender: M Rn Lpn Lvn: VALERY : 1970 Requested By: WILLIE BARDALES Order Number: [id number] Reading MD: Emmett Infante Measurements Intervals [place] Rate: 89 P: 66 NV: 143 QRS: -52 QRSD: 124 T: 143 QT: 407 QTc: 495 Interpretive Statements Sinus rhythm LAE, consider biatrial enlargement Left bundle branch block No previous ECG available for comparison Electronically Signed On 04-29-2022 14:17:17 EDT by Emmett Infante
== END 2022-04-28 15:15 | disposition home or self-care (01) | DRG 281 ==
LOC: ED 22:24 → 4A 04-27 03:37
PROVIDERS: ADMIT Internal Medicine Geriatric Medicine; ATTEND Internal Medicine
DX: I21.4 Non-ST elevation (NSTEMI) myocardial infarction (principal); I47.1 Supraventricular tachycardia; Z68.41 Body mass index [BMI] 40.0-44.9, adult; R91.1 Solitary pulmonary nodule; Z91.19 Patient's noncompliance with other medical treatment and regimen; I16.0 Hypertensive urgency; F12.20 Cannabis dependence, uncomplicated; I10 Essential (primary) hypertension; Z87.891 Personal history of nicotine dependence
CPT/HCPCS: 36415; 71045; 71275; 80048; 80053; 80061; 80307; 81001; 82550; 82553; 82962; 83735; 83880; 84443; 84484; 85025; 85379; 93005; 93306; 96372; 96374; 96375; 99285; G0378; C8929; J0360; J1644; J1650; J1940; Q9967